=== PATIENT | male | born 1985 | race Caucasian/White ===

== ENCOUNTER 2020-08-27 15:13 | Inpatient (IN) | payer BC ==
[~2020-08-27 15:13] MED LIST: Iopamidol-370 76% 500 ML 1 ML ONE; Lorazepam 2 MG/ML VIAL ONE; Ondansetron PF 4 MG/2 ML Vial ONE
[2020-08-27] MEDS ORDERED: levETIRAcetam In NaCl (Iso-Os) 200 ML ONE (15:17)
[2020-08-27 15:37] LABS: #Basophils 0.2 thou/uL (0.0-0.2); #Eosinphils 0.5 thou/uL (0.0-0.7); #Lymphocytes 4.5 thou/uL (1.20-3.40); #Monocytes 0.7 thou/uL (0.11-0.59); #Neutrophils 10.3 thou/uL (1.40-6.50); %Eosinophils 2.9 % (0.0-10.0); %Monocytes 4.5 % (0.0-10.0); %Neutrophils 63.5 % (42.0-75.0); Hemoglobin 16.7 g/dL (14.0-18.0); Mean Corpuscular HGB CONC 33.9 g/dL (32.0-36.0); Mean Corpuscular Hemoglobin 31.3 pg (27.0-31.0); Mean Corpuscular Volume 92.5 fL (78.0-98.0); Mean Platelet Volume 8.8 fL (7.4-10.4); Platelet Count 448 thou/uL (130-400); RBC Distribution Width 11.4 % (11.5-14.5); Red Blood Cell (RBC) Count 5.32 mill/uL (4.70-6.10); White Blood Cell (WBC) Count 16.2 thou/uL (4.8-10.8)
[2020-08-27 15:55] LABS: Chloride 102 mmol/L (98-107); Potassium 4.4 mmol/L (3.5-5.1); Sodium 137 mmol/L (136-145)
[2020-08-27 15:56] LABS: Calcium 8.6 mg/dL (7.8-10.44); Glucose 211 mg/dL (70-105)
[2020-08-27 15:57] LABS: Globulin 3.8 g/dL (2.4-3.5); Protein, Total 8.6 g/dL (6.0-8.3)
[2020-08-27 15:58] LABS: Bilirubin, Total 0.3 mg/dL (0.2-1.2)
[2020-08-27 16:05] LABS: ALT (SGPT) 26 U/L (8-55); AST (SGOT) 25 U/L (5-34); Albumin 4.8 g/dL (3.5-5.0); Alkaline Phosphatase 124 U/L (40-110); Anion Gap 32 mmol/L (10-20); BUN (Urea Nitrogen) 10 mg/dL (8.9-20.6); Calc. Creatinine Clearance 0 mL/min (70-130); Carbon Dioxide 8 mmol/L (22-29); Estimated GFR-MDRD 65
--- NOTE | 2020-08-27 16:08 | CT ---
CT CERVICAL SPINE NONCONTRAST: DATE: 08/27/2020 HISTORY: cervical trauma: 34-year-old male status post fall due to seizure FINDINGS: There are no jumped or perched facets. There is no evidence of acute fracture. The vertebral body hei ghts are maintained. There is no prevertebral soft tissue swelling. There is a coronally oriented linear lucency across the anterior portion of distal aspect of the right T1 transverse process. It ap pears to have corticated margins, and therefore does not appear to be an acute fracture. IMPRESSION: No convincing evidence of acute fracture or acute traumatic subluxation.
[2020-08-27] MEDS ORDERED: Rocuronium Bromide 10 MG/ML (10ML VIAL) ONE ×2 (16:17→16:18)
[2020-08-27] MEDS ORDERED: Propofol 1,000 MG/100 ML VIAL IV ONE ×2 (16:35→19:30)
--- NOTE | 2020-08-27 16:43 | CT ---
BRAIN CT WITHOUT IV CONTRAST: Date: 08/27/2020 HISTORY: Altered mental status. Seizure. COMPARISON: 10/17/2018. FINDINGS: There is evidence for bilateral subarachnoid hemorrhage involving the cerebrum primarily. Mild sinus mucosal changes of the sphenoid and ethmoid sinuses. There is no focal mass or midline shift. No evid ence for extra-axial hemorrhage. IMPRESSION: 1. Fairly extensive bilateral subarachnoid hemorrhage. 2. Nasopharyngeal tube noted in place. Findings discussed with Dr. Hunt at 1555 hours. CODE CR. Follow-up CT angiogram brain suggested for further evaluation.
--- NOTE | 2020-08-27 17:03 | RAD ---
Portable frontal chest radiograph: 08/27/2020 COMPARISON: None HISTORY: Seizures, intubated patient FINDINGS: There is an endotracheal tube present, distal tip overlying the tracheal air column at the level of the clavicular head. There is mild increased linear interstitial density seen diffusely with no focal consolidation or alveolar edema. Supine nature of the exam limits assessment for pneumo thorax and pleural fluid. The tip of the nasogastric tube is suspected at the level of the thoracic inlet. IMPRESSION: Lines and tubes as above. Probable malposition nasogastric tube. Nonspecific linear inter stitial density as above. Results called to Dr. Hunt 5:00 PM on 08/27/2020
--- NOTE | 2020-08-27 17:40 | CT ---
CT angiogram head: 08/27/2020 COMPARISON: None HISTORY: Subarachnoid hemorrhage TECHNIQUE: Axial CT imaging at 1.25 mm intervals the head with IV contrast using CT angiogram protoco l. Coronal and sagittal 3-D reformatted imaging obtained. FINDINGS: The mastoid air cells are well-aerated. There is partial opacification involving bilateral frontal sinuses and ethmoid air cells. Mild mucosal thickening of the right sphenoid sinus and bilateral maxillary sinuses. There is fluid within the oropharynx and nasopharynx with fluid within bilateral nasal cavities. The distal vertebral arteries appear patent bilaterally. The basilar artery and its branches are chiu nt. No evidence for saccular aneurysm high-grade stenosis or vascular occlusion of the posterior circulation. The imaged portions of the extracranial ICA appear patent bilaterally. The cavernous segment of the internal carotid artery appears unremarkable bilaterally. The anterior c ommunicating artery and the distal MADI branches appear grossly unremarkable. The M1 segment appears patent. The MCA bifurcation and the ICA bifurcation appears grossly unremarkab le. Distal MADI and MCA branches appear patent. No saccular aneurysm is evident involving the anterior circulation. There is extensive diffuse subarachnoid hemorrhage, better assessed on recent n oncontrast enhanced head CT, which includes subarachnoid blood in bilateral sylvian fissures. No acute osseous abnormality. IMPRESSION: No CT angiographic evidence for saccular intracranial aneurysm. Short-term follow-up conv entional angiogram and/or repeat CT angiogram is advised to exclude the possibility of an aneurysm obscured by vasospasm or acute thrombosis.
[2020-08-27] MEDS ORDERED: Promethazine 25 MG TAB PO PRN (17:42)
[2020-08-27] MEDS ORDERED: Docusate 100 MG CAP PO PRN (17:42)
[2020-08-27] MEDS ORDERED: hydrALAZINE 20 MG/ML VIAL SLOW IVP PRN ×2 (17:42)
[2020-08-27] MEDS ORDERED: Promethazine HCl 25 MG/ML VIAL IM PRN (17:42)
[2020-08-27] MEDS ORDERED: Lorazepam 2 MG/ML VIAL ONE ×2 (17:42→23:28)
[2020-08-27] MEDS ORDERED: diphenhydrAMINE 50 MG CAP PO PRN (17:42)
[2020-08-27] MEDS ORDERED: Acetaminophen 325 MG TAB PO PRN (17:42)
[2020-08-27] MEDS ORDERED: Mag-Al 1200 mg/1200 mg/30 ML UDCUP PO PRN (17:42)
[2020-08-27] MEDS ORDERED: diphenhydrAMINE 50 MG/ML VIAL IVP PRN (17:42)
[2020-08-27 17:46] LABS: Actual Bicarbonate (HCO3a) 20.3 mEq/L (22-28); Analyzer IN Cardio ER; Base Excess (BEa) -4.8 mEq/L (-2.0 to +3.0); CO2 Tension 38.4 mmHg (35.0-45.0); Calcium, Ionized (arterial) 1.12 mmol/L (1.12-1.30); Carboxyhemoglobin (COHb) 1.2 gm% (0.0-3.0); Hemoglobin (Hb) 16.5 g/dL (14.0-18.0); Potassium - ABG Lab 3.92 mmol/L (3.70-5.30); pH, Arterial 7.34 (7.35-7.45)
[2020-08-27 17:48] LABS: Puncture Site RRA
[2020-08-27 17:50] LABS: Prothrombin Time 13.4 sec (12.0-14.7)
[2020-08-27 17:51] LABS: PTT 20.3 sec (22.9-36.1)
[2020-08-27] MEDS ORDERED: Fentanyl 100 MCG/2 ML VIAL ONE ×2 (17:53→17:57)
[2020-08-27] MEDS ORDERED: Fosphenytoin Sodium 1,500 MG in Sodium Chloride 0.9% 50 ML IVPB SCH (18:00)
[2020-08-27] MEDS ORDERED: fentaNYL Citrate/PF 2,000 MCG in Sodium Chloride 0.9% 60 ML IV SCH ×2 (18:00→18:30)
[2020-08-27] MEDS ORDERED: Ondansetron PF 4 MG/2 ML Vial IVP PRN (18:02)
[2020-08-27] MEDS ORDERED: Dextrose 5% in Water 1,000 ML IV PRN (18:02)
[2020-08-27] MEDS ORDERED: Dextrose 50% Abboject 50 ML SYRINGE SLOW IVP PRN (18:02)
[2020-08-27] MEDS ORDERED: Ventilator Sedation Protocol 1 EACH FS ONE (18:12)
[2020-08-27] MEDS: Sodium Chloride 0.9% 1,000 ML IV SCH (18:15)
--- NOTE | 2020-08-27 18:27 | RAD ---
FRONTAL RADIOGRAPH CHEST: 08/27/20 at 6:04 p.m. HISTORY: Evaluate lines and tubes. FINDINGS: Nasogastric tube extends into the epigastric region. Endotracheal tube present in proper position. No pneumothorax, lobar consolidation, or alveolar edema. IMPRESSION: Lines and tubes as detailed above. POS: CRISTAL
[2020-08-27] MEDS ORDERED: Propofol BOLUS 1,000 MG/100 ML VIAL IV PRN (18:30)
[2020-08-27] MEDS ORDERED: Fentanyl BOLUS 250 ML IVPB PRN (18:30)
[2020-08-27] MEDS ORDERED: Morphine 2 MG/ML VIAL SLOW IVP PRN (18:30)
[2020-08-27] MEDS ORDERED: Lorazepam 2 MG/ML VIAL SLOW IVP PRN (18:30)
[2020-08-27] MEDS ORDERED: DISCONTINUE PREVIOUS NARCOTIC PAIN MEDICATIONS AND BENZODIAZEPINES FS SCH (18:30)
[2020-08-27 18:42] LABS: Phosphorus 5.6 mg/dL (2.3-4.7)
[2020-08-27 19:01] LABS: Bilirubin Negative (Negative); Blood, Urine Trace (Negative); Glucose, Urine (Dipstick) Negative (Negative); Ketone, Urine Negative (Negative); Leukocyte Negative (Negative); Nitrite Negative (Negative); Protein, Urine (Dipstick) Negative (Neg-Trace); Specific Gravity, Urine 1.015 (1.005-1.030); Urobilinogen 0.2 mg/dL (Less than 2); pH, Urine 6.5 (5.0-9.0)
[2020-08-27 19:04] LABS: Clarity Clear (Clear)
[2020-08-27 19:06] LABS: Bacteria/HPF None Seen HPF (None Seen); RBC/HPF 0-3 HPF (0-3); Squamous Epithelial None Seen HPF (0-3); Transitional Epithelial None Seen HPF (None Seen); WBC/HPF None Seen HPF (0-3)
[2020-08-27 19:47] LABS: Anion Gap 20 mmol/L (10-20); BUN (Urea Nitrogen) 9 mg/dL (8.9-20.6); Calc. Creatinine Clearance 0 mL/min (70-130); Calcium 8.4 mg/dL (7.8-10.44); Carbon Dioxide 17 mmol/L (22-29); Chloride 105 mmol/L (98-107); Estimated GFR-MDRD Greater than 90; Glucose 92 mg/dL (70-105); Magnesium 2.6 mg/dL (1.6-2.6); Sodium 138 mmol/L (136-145)
[2020-08-27 19:50] LABS: Phosphorus 2.6 mg/dL (2.3-4.7)
[2020-08-27] MEDS ORDERED: Sodium Phosphate 15 MMOL in Sodium Chloride 0.9% 250 ML 250 ML IVPB ONE (20:00)
[2020-08-27 20:17] LABS: Amphetamine Not Detected (NotDetected); Barbiturates Screen Not Detected (NotDetected); Benzodiazepine Screen Not Detected (NotDetected); Cocaine Metabolite Screen Not Detected (NotDetected); Medtox Control Line Valid? VALID (VALID); Medtox Reader # READER 4; Methadone Not Detected (NotDetected); Methamphetamine Not Detected (NotDetected); Opiate Screen Not Detected (NotDetected); Oxycodone Screen Not Detected (NotDetected); Phencyclidine (PCP) Not Detected (NotDetected); THC/Cannabinoid Screen Detected (NotDetected); Tricyclic Screen Not Detected (NotDetected)
[2020-08-27] MEDS ORDERED: Famotidine/PF 20 mg/2ml Vial ONE (20:53)
[2020-08-27] MEDS: Famotidine/PF 20 mg/2ml Vial SLOW IVP SCH (21:00)
[2020-08-27] MEDS ORDERED: Midazolam HCl 2 mg/2 ml Vial ONE (21:33)
[2020-08-27] MEDS: Propofol 1,000 MG/100 ML VIAL IV PRN (23:32)
[2020-08-27 23:58] VITALS: BMI 24.3
--- NOTE | 2020-08-28 00:39 | CON ---
DATE OF CONSULTATION: 08/27/2020 HISTORY OF PRESENT ILLNESS: Mr. Juancarlos Staton is a 34-year-old gentleman with a history of seizures for the past 5 years, being managed by a neurology doctor in [facility]. 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 Witnesses state that the patient had a seizure for 10 minutes. EMS reports that the patient was having a tonic colonic seizure and was given IM Valium 8 minutes prior to the arrival to the ED. It is reported that the patient fell and does have a contusion over the left frontal and periorbital region of his face. Neurosurgery was consulted due to a CT of the head showing bilateral subarachnoid hemorrhage. Followup was recommended by Radiology for a CT angiogram, which was read as negative for saccular intracranial aneurysm. REVIEW OF SYSTEMS: Noncontributory. PAST MEDICAL HISTORY: From , seizure disorder, PTSD, depression. MEDICATIONS: 1. Alprazolam 0.5 mg. 2. Venlafaxine 150 mg. 3. Keppra 750 mg. 4. Venlafaxine 75 mg. 5. Lamotrigine 200 mg. ALLERGIES: NO KNOWN DRUG ALLERGIES. FAMILY HISTORY: Noncontributory. SOCIAL HISTORY: Noncontributory. PHYSICAL EXAMINATION: VITAL SIGNS: Blood pressure 132/74, pulse 100, temperature 97.6. HEENT: Pupils are equal. Eyelids normal. Conjunctiva normal. Contusion over the left frontal and preorbital region. NECK: C-spine collar. NEUROLOGIC: GCS eye opening 2, vocal 2, motor 5, total 9 prior to intubation. Unable to get a neurological exam due to sedation and intubation of the patient. IMAGIN. Head CT, bilateral subarachnoid hemorrhage. 2. CT of the C-spine, no acute fractures. 3. Head CTA, negative for aneurysm. LABORATORY DATA: Platelets 448. PT 13.4, INR 1.0, PTT 20.3. Sodium 137, Keppra level 54.6. ASSESSMENT: 1. Seizure disorder. 2. Bilateral subarachnoid hemorrhage. PLAN: Repeat CT of the brain in the morning. If scan shows improvement or no change, we will transfer care to the Trauma Service. Supportive care. No intracranial surgery at this time. We will have him follow up in 2 to 3 weeks in our clinic and repeat scan prior to that visit. Job ID: [id number]
[2020-08-28] MEDS ORDERED: Lorazepam 2 MG/ML VIAL SLOW IVP PRN (03:21)
[2020-08-28 03:36] LABS: INR-International Normal Ratio 1.1
[2020-08-28 03:37] LABS: PTT 31.4 sec (22.9-36.1)
[2020-08-28 03:41] LABS: #Basophils 0.1 thou/uL (0.0-0.2); #Eosinphils 0.2 thou/uL (0.0-0.7); #Lymphocytes 3.3 thou/uL (1.20-3.40); #Monocytes 1.4 thou/uL (0.11-0.59); #Neutrophils 10.2 thou/uL (1.40-6.50); %Basophils 0.6 % (0.0-1.0); %Eosinophils 1.5 % (0.0-10.0); %Lymphocytes 21.8 % (21.0-51.0); %Monocytes 9.2 % (0.0-10.0); %Neutrophils 66.9 % (42.0-75.0); Hemoglobin 13.9 g/dL (14.0-18.0); Mean Corpuscular HGB CONC 35.6 g/dL (32.0-36.0); Mean Corpuscular Hemoglobin 31.8 pg (27.0-31.0); Mean Corpuscular Volume 89.6 fL (78.0-98.0); Mean Platelet Volume 7.4 fL (7.4-10.4); Platelet Count 295 thou/uL (130-400); RBC Distribution Width 11.3 % (11.5-14.5); Red Blood Cell (RBC) Count 4.36 mill/uL (4.70-6.10); White Blood Cell (WBC) Count 15.2 thou/uL (4.8-10.8)
[2020-08-28] MEDS: Propofol 1,000 MG/100 ML VIAL IV PRN (03:53)
[2020-08-28 04:04] LABS: Anion Gap 14 mmol/L (10-20); BUN (Urea Nitrogen) 11 mg/dL (8.9-20.6); Calc. Creatinine Clearance 164 mL/min (70-130); Calcium 8.1 mg/dL (7.8-10.44); Carbon Dioxide 22 mmol/L (22-29); Chloride 107 mmol/L (98-107); Estimated GFR-MDRD Greater than 90; Glucose 84 mg/dL (70-105); Potassium 3.5 mmol/L (3.5-5.1); Sodium 139 mmol/L (136-145)
[2020-08-28 04:13] LABS: Magnesium 2.5 mg/dL (1.6-2.6); Phosphorus 3.2 mg/dL (2.3-4.7)
[2020-08-28] MEDS: Sodium Chloride 0.9% 1,000 ML IV SCH ×3 (04:50→23:58)
--- NOTE | 2020-08-28 05:12 | HP ---
ADDENDUM: This is an addendum to the H and P dictated by Tabitha Lima, trauma nurse practitioner. For full details, please see her H and P. The patient was examined in the emergency room. He was intubated and sedated at the time of my evaluation, so history was obtained from chart review and discussion with his nurse. The patient is a 34-year-old man who reportedly had a witnessed seizure lasting about 10 minutes, during which he fell and hit his head. When he arrived in the emergency room, he had a decreased level of consciousness and was felt to be postictal. A CT of the head revealed fairly extensive bilateral subarachnoid hemorrhage, however, and his EMV was less than 8, so the ER physician elected to intubate him for airway protection. He reportedly had another witnessed seizure shortly thereafter and received more benzodiazepines for this. He had also received benzodiazepines by EMS given IM at the time of his initial evaluation. When I saw him, he was on the sedation protocol and was not following commands, but according to his nurse, he will intermittently follow commands, but then will become agitated and they will have to turn his sedation backup. He has not had any recent witnessed seizure activity. PAST MEDICAL HISTORY: Seizure disorder, reportedly compliant with medications and last seizure 9 months ago and history of testicular cancer as a 11-year-old. MEDICATIONS: Outpatient medications include; 1. Alprazolam 0.5 mg p.o. b.i.d. 2. Venlafaxine 150 mg p.o. daily. 3. Levetiracetam 750 mg p.o. b.i.d. 4. Venlafaxine 75 mg p.o. daily. 5. Lamotrigine 200 mg p.o. q.a.m. and 300 mg p.o. q.p.m. PAST SURGICAL HISTORY: Right orchiectomy and lymph node dissection for testicular cancer. REVIEW OF SYSTEMS: Not obtainable. FAMILY HISTORY: Not documented. SOCIAL HISTORY: The patient is reportedly a principal. PHYSICAL EXAMINATION: VITAL SIGNS: Patient has been afebrile since admission. Blood pressure at the time of my evaluation was 104/69, heart rate 102, respirations 21 and 100% saturated on SIMV. NEUROLOGIC: The patient did not open eyes to voice or pain. Spontaneously he exhibited withdrawal to pain, but was not following commands or localizing and was intubated. HEENT: Shows left periorbital ecchymosis and abrasion and some swelling on his left forehead. Some minor abrasions on his lower lip and tip of tongue. Pupils were equal and reactive. NECK: Supple without lymphadenopathy. No palpable step-offs. HEART: Regular in rate and rhythm without murmurs, rubs, or gallops. LUNGS: Clear to auscultation bilaterally. ABDOMEN: Soft and nondistended. No palpable masses or hernias and healed midline incision and right inguinal incision. EXTREMITIES: Warm, well perfused without edema or deformity. Normal pedal and radial pulses. PSYCHIATRIC: Unable to evaluate. DIAGNOSTIC STUDIES: CT of the neck did not show any acute fractures. CT angio of the brain did not show any saccular aneurysms. CT of the brain showed bilateral subarachnoid hemorrhages. LABORATORY DATA: White count was mildly elevated at 16, platelets 448, hematocrit 49. Coags are normal. Electrolytes unremarkable, except for a low bicarb of 8, prolactin 12. ABGs after intubation showed a pH of 7.34, pCO2 of 38, and PO2 of 94 on 40% FiO2. ASSESSMENT: Subarachnoid hemorrhage, presumed traumatic following fall during witnessed seizure. Spontaneous hemorrhage cannot be completely excluded. No evidence of aneurysm on CT angio of the brain. Neurosurgery has been consulted and is following the patient. He is intubated for airway protection and will be admitted to the ICU with serial neuro checks. Vent sedation protocol in place to prevent the patient's self-harm from reaching for tubes and lines and also to keep blood pressure in normal range. No recent witnessed seizure activity, but monitoring closely for this. Job ID: [id number]
--- NOTE | 2020-08-28 05:25 | PRG ---
DATE OF SERVICE: 08/27/2020 SUBJECTIVE: The patient was seen this evening while rounding in the emergency department. He was intubated and sedated. Sedation vacation was completed and the patient had a GCS of 10 to 11T. He appeared to understand what we were asking of him and his situation. His pain was well controlled. OBJECTIVE: VITAL SIGNS: Temperature 97.9, pulse 93, respirations 18, oxygen saturation 99% on the ventilator, and blood pressure 109/64. GENERAL: Well-appearing young male, lying in bed with no signs of acute distress. PULMONARY: Equal chest rise and fall. Clear breath sounds bilaterally. No signs of acute respiratory distress. CARDIAC: Regular rate and rhythm. GI: Abdomen is soft, nontender, nondistended. EXTREMITIES: 2+ pulses in all extremities. Gross motor and sensation intact. No significant swelling noted. FACE: The patient does have left-sided face and cheek bruising. NEUROLOGIC: GCS is eyes 3 to 4, verbal 1T, and motor 6 for a total of 10 to 11T. LABORATORY FINDINGS: Sodium 138, potassium 4.0, chloride 105, bicarb 17, BUN 9, creatinine 0.87, glucose 92, phosphorus 2.6, magnesium 2.6. DIAGNOSTIC FINDINGS: There are no new diagnostic findings to report. ASSESSMENT: 1. Status post fall due to seizures. 2. Bilateral frontal subarachnoid hemorrhages. 3. History of seizures and testicular cancer. PLAN: Continue current n.p.o. status. Normal saline 120 an hour. Continue fentanyl and propofol drips. Repeat head CT in the morning, q.1 hour neuro checks. Repeat blood work in the morning. Replace sodium and phos. This patient was discussed with Dr. Reardon before this dictation. Job ID: [id number]
--- NOTE | 2020-08-28 05:50 | HP ---
REQUESTING PHYSICIAN: Dr. Hunt. CONSULTS: Neurosurgery, Dr. Barry. CHIEF COMPLAINT: Seizure, fall from standing, altered mental status. HISTORY OF PRESENT ILLNESS: This is a 34-year-old gentleman who has previous history of seizures for the last two years, currently takes Keppra in which his last seizure was approximately 6 months ago. The patient is a high school coordinator. He was at school this afternoon when he had seizure activity lasting approximately 10 minutes, fell hitting his head. EMS arrived and the patient continued to have seizures and was given 5 mg of Versed. When the patient arrived to the emergency room, he was postictal. EMS reports the patient was hypoxic with SpO2 in the 80s on room air, in which a nasal airway was placed. The patient was also placed on a non- rebreather with oxygen saturations in the 90s. The patient's GCS was reported by the ER physician to be E1, V1, M5. The patient was taken to the CT scanner, which revealed bilateral subarachnoid hemorrhages. The patient was taken back to the ER room and rapid sequence intubation was completed. Medications given included fosphenytoin 1500 mg, lorazepam 2 mg IV, multiple doses of propofol after intubation, rocuronium 100 mg for induction, etomidate 30 mg IV, lorazepam 2 mg IV, 1 L of normal saline, Zofran 4 mg, and Keppra 2 g. The patient was evaluated by Neurosurgery in the emergency room and Trauma Services was asked to admit the patient. REVIEW OF SYSTEMS: Unable to obtain due to the patient being intubated. Other subjective information was gathered by the patient's and/or ER chart. ALLERGIES: NO KNOWN DRUG ALLERGIES. MEDICATIONS: 1. Alprazolam 0.5 mg p.o. b.i.d. p.r.n. 2. Venlafaxine 150 mg once a day. 3. Keppra 750 mg p.o. b.i.d. 4. Venlafaxine 75 mg once a day. 5. Lamotrigine 200 mg one tablet in the morning and 1.5 tablets in the evening. PAST MEDICAL HISTORY: Seizures, testicular cancer at age 11 treated with chemotherapy. 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 PHYSICAL EXAMINATION: VITAL SIGNS: Pulse 100, blood pressure 105/67, respirations 18, and SpO2 of 100% on 40% FiO2. GENERAL: Well-appearing middle aged male, sedated on full mechanical ventilatory support. HEENT: Normocephalic, contusion, abrasion, left forehead and periorbital region. Pupils 2 mm and sluggish. Trachea midline. C-spine cleared by ER physician. Tympanic membranes unremarkable. RESPIRATORY: Equal chest rise and fall. Bilateral breath sounds clear. No wheezing, rales, or rhonchi. CARDIOVASCULAR: Regular rate and regular rhythm. No murmurs. No pedal edema. EXTREMITIES: No obvious deformities. Distal pulses intact. ABDOMEN: Soft, nondistended. Active bowel sounds. SKIN: Jerome, warm, dry. No lesions. NEUROLOGIC: Sedated. Moves all extremities. E1, V1, M5. LABORATORY DATA: WBC 16.2, RBC 5.32, hemoglobin 16.7, hematocrit 49.2, platelets 448. PT 13.4, INR 1.0, aPTT 20.3. ABG; bicarb 20.3, pH 7.34, pCO2 of 38.4, pO2 of 94, base excess -4.8, ionized calcium 1.12. Sodium 137, potassium 4.4, chloride 102, carbon dioxide 8, anion gap 32, BUN 10, creatinine 1.26, estimated GFR 65, glucose 211, phosphorus 5.6, magnesium 2.9. AST 25, ALT 26, alkaline phos 124, albumin 4.8, and prolactin 12.0. Urinalysis, negative for UTI. DIAGNOSTIC DATA: 1. Brain CT, impression, fairly extensive bilateral subarachnoid hemorrhage, mainly involving the cerebrum. There is no focal mass or midline shift. There is no evidence of extra-axial hemorrhage. 2. Cervical spine CT, impression, no convincing evidence of acute fracture or acute traumatic subluxation. 3. [place] angio with contrast, no CT angiographic evidence for saccular intracranial aneurysm. Short-term followup conventional angiogram and/or repeat CT angiogram is advised to exclude the possibility of an aneurysm obscured by vasospasm or acute thrombosis. 4. Chest x-ray, impression, mild increased linear interstitial density seen diffusely with no focal consolidation of alveolar edema. ASSESSMENT: 1. Status post seizure activity. 2. Ground level fall. 3. Bilateral subarachnoid hemorrhages. 4. Left scalp contusion and abrasion. 5. History of seizures, on Keppra and compliant. PLAN: Admit to the critical care unit. Full ventilatory support with sedation and pain regimen. Head of bed elevated at 30 degrees at all times. End-tidal CO2 with a goal of 35 to 40. Maintenance IV fluids, normal saline at 120 an hour. Monitor urinary output. Repeat labs in an ABG. Neurosurgery plans to repeat a head CT in the morning. We will monitor blood glucose levels. The plan was discussed with Dr. Rush and Dr. Reardon who agrees. Job ID: [id number] [facility]ENTERAndreas
--- NOTE | 2020-08-28 06:53 | PRG ---
DATE OF SERVICE: I personally examined the patient, reviewed records and imaging and agreed with documentation of Shakir Gudino PA-C, dated 08/27/2020. 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 He has a known seizure disorder, for which he takes Keppra. He was intubated in our emergency department and CT examination of brain showed some traumatic appearing subarachnoid hemorrhage, although some of that extended into the sylvian fissures bilaterally. This was in the distal sylvian fissure rather than in the basal cistern area. A CT angiogram was performed, which was negative. He has been admitted overnight in the ICU on the ventilator. When sedation is weaned, he follows commands easily. Overnight, I do not see any fevers recorded. Blood pressures have been in the low 100s. He is currently on propofol to tolerate the ventilator, but even through the propofol, he can move all extremities. When the propofol is weaned, he can follow commands. The sodium is 139 this morning[address] I reviewed CT angiography and there was no aneurysm visible. I reviewed a followup CT scan of the head and the subarachnoid blood is decreasing in its volume. The plan today for Mr. Juancarlos Staton is to wean him off the ventilator. Extubate him when he is stable to move from the ICU to floor care. If he is safe for all his activities of daily living, he can be discharged as early as this afternoon. He should follow up with his neurologist and adjustments can be made to his Keppra based on his serum Keppra level when he was admitted. Job ID: [id number] [facility]
[2020-08-28 07:24] LABS: Actual Bicarbonate (HCO3a) 23.3 mEq/L (22-28); Base Excess (BEa) -0.9 mEq/L (-2.0 to +3.0); CO2 Tension 37.2 mmHg (35.0-45.0); Calcium, Ionized (arterial) 1.17 mmol/L (1.12-1.30); Carboxyhemoglobin (COHb) 0.6 gm% (0.0-3.0); Hemoglobin (Hb) 13.7 g/dL (14.0-18.0); O2 Tension (PaO2), arterial 144.3 mmHg (80.0-100.0); Potassium - ABG Lab 3.37 mmol/L (3.70-5.30); pH, Arterial 7.41 (7.35-7.45)
[2020-08-28 07:26] LABS: Puncture Site RB
--- NOTE | 2020-08-28 08:02 | RAD ---
Chest AP view INDICATION: History of intubation COMPARISON: August 27, 2020 FINDINGS: Lungs: Bibasilar atelectasis persists, left greater than right. Cardiac silhouette: Heart size is normal. Pulmonary vasculature: Normal Pleural spaces: No pleural effusion or pneumothorax is demonstrated. Upper abdomen: No abnormality seen. Osseous structures: No acute osseous abnormality. Additional findings: ET tube and gastric catheter unchanged. IMPRESSION: Bibasilar atelectasis is stable. Stable tubes and lines. No pneumothorax.
--- NOTE | 2020-08-28 08:13 | CT ---
PRELIMINARY REPORT/[facility]/EMERGENCY AFTER HOURS PROCEDURE EXAM: CT Head Without Intravenous Contrast. CLINICAL HISTORY: REPEAT for Subarachnoid Hemorrhage TECHNIQUE: Axial computed tomography images of the head/brain without intravenous contrast. COMPARISON: NONE PROVIDED. FINDINGS: BRAIN: No acute intraparenchymal hemorrhage. No mass lesion. No CT evidence for acute territorial infarct. Moderate amount of subarachnoid blood noted bilaterally within the sylvian fissure complexes and in the anterior interhemispheric fissure. VENTRICLES: No hydrocephalus. ORBITS: The orbits are unremarkable. SINUSES AND MASTOIDS: Fairly extensive but chronic paranasal sinus disease. Mastoids are clear. SOFT TISSUES: No significant facial or scalp soft tissue swelling evident. No radiopaque foreign body is seen. BONES: No acute skull fracture. IMPRESSION: Moderate subarachnoid hemorrhage bilaterally. No definite, acute intraparenchymal abnormalities. Th is apparently is known but a comparison study is not available for comparison. ELECTRONICALLY SIGNED BY: Shakir Choudhary MD Aug 28, 2020 4:21:57 AM APPLIANCE ADJUSTER This report is intended for review by the ordering physician only, in accordance of law. If you recei ve this report in error, please call [facility] at [phone]. FINAL REPORT EMERGENCY AFTER HOURS CT HEAD: The distributed subarachnoid hemorrhage seen within the lateral aspects of the suprasellar cistern ex tending into the sylvian fissures bilaterally and along the parafalcine region is largely stable. There is slightly increased layered hemorrhage within the interpeduncular cistern. No hydrocephalus o r midline shift is evident. No acute infarct is noted. Mucosal disease of the ethmoid air cells is stable. IMPRESSION: Likely stable distributed subarachnoid hemorrhage without evidence of hydrocephalus or acute infarct. Transcribed Date/Time: 08/28/2020 9:00 AM
[2020-08-28] MEDS ORDERED: levETIRAcetam In NaCl (Iso-Os) 750 MG in Premix Bag 1 BAG IVPB SCH (09:00)
[2020-08-28] MEDS ORDERED: Chloraseptic Spray 180 ml Bottle PO PRN (09:55)
[2020-08-28] MEDS: Famotidine/PF 20 mg/2ml Vial SLOW IVP SCH (11:23)
--- NOTE | 2020-08-28 16:50 | PRG ---
DATE OF SERVICE: 08/28/2020 SUBJECTIVE: Mr. Juancarlos Staton is a 34-year-old man with history of epileptic seizure disorder. The patient fell from a ground-level position yesterday, striking his head during a 10-minute seizure activity. He was intubated at the scene and transferred to [facility] in [place], [place]. Workup included a CT scan of the brain, which revealed bilateral subarachnoid hemorrhages. A followup CT scan this morning reveals nearly resolved subarachnoid hemorrhages. Meanwhile, the patient is on mechanical ventilator support. He awakens to voice, moves all extremities, and follows commands. OBJECTIVE: VITAL SIGNS: This morning during my visit include blood pressure of 109/68, pulse 106, respiratory rate 17, maximum temperature in the last 24 hours is 98.5 degrees Fahrenheit, oxygen saturation 100% on FiO2 of 30% on mechanical ventilator support. HEENT: Pupils equally round and reactive to light bilaterally. HEART: Regular rate with mild sinus tachycardia. No murmurs or gallops auscultated. LUNGS: Clear to auscultation bilaterally. Breathing, regular and nonlabored. ABDOMEN: Soft, nontender, and nondistended. MUSCULOSKELETAL: 5/5 muscle strength in bilateral upper and lower extremities. LABORATORY FINDINGS: Today include a CBC with 15,200 white blood cells, hemoglobin and hematocrit 13.9 and 39.1 respectively, and platelet count is 295,000. Metabolic profile: Sodium 139, potassium 3.5, chloride is 107, bicarb is 22, BUN 11, creatinine 0.76, and glucose 84. Magnesium 2.5. Phosphorus is 3.2. Keppra levels yesterday were 41.0. IMPRESSIONS: 1. Status post ground-level fall during apparent recurrent epileptic seizure activity, postinjury day #1. 2. Resolving acute traumatic brain injury. 3. Resolving acute posttraumatic respiratory failure. PLAN: 1. The patient was weaned and successfully extubated. 2. Increase activity per Physical and Occupational Therapy. 3. Anticipate discharge within the next 24 hours to follow up with Neurology. 4. The patient was certainly in need of adjustment on his Keppra level. TOTAL CRITICAL CARE TIME: 35 minutes. Job ID: [id number]
[2020-08-28 17:39] LABS: SARS-CoV-2 MS2 Positive; SARS-CoV-2 N Gene Negative; SARS-CoV-2 S Gene Negative; SARS-CoV-2 by NAA Not Detected (NotDetected); SARS-CoV-2 orf1ab Negative
[2020-08-28] MEDS: Acetaminophen 500 MG TAB PO PRN (18:33)
[2020-08-28] MEDS ORDERED: levETIRAcetam 500 MG TAB PO SCH (21:00)
[2020-08-28] MEDS ORDERED: lamoTRIgine 100 MG TAB PO SCH (21:30)
--- NOTE | 2020-08-29 02:49 | PRG ---
DATE OF SERVICE: 08/28/2020 SUBJECTIVE: Patient was seen this evening during rounds. He was sitting up in bed, resting comfortably and asleep with no signs of acute distress. Nursing reported patient had a mild headache earlier that has now resolved with Tylenol. He has been drinking water, but reports he does not have much of an appetite. We will allow the patient to try again eating tomorrow morning. Otherwise, the patient's GCS remained 14 to 15. No signs of any seizure-like activity. OBJECTIVE: VITAL SIGNS: Temperature 98.5, pulse 96, respirations 16, oxygen saturation 98% on room air, and blood pressure 115/66. GENERAL: Well-appearing young male, sitting up in bed, asleep, with no signs of acute distress. PULMONARY: Equal chest rise and fall. No signs of acute respiratory distress. ASSESSMENT: 1. Status post seizure with fall. 2. Bilateral subarachnoid cerebral hemorrhages, stable. 3. History of seizures and testicular cancer. PLAN: Continue current regular diet. Restart patient's home p.o. Lamictal and Keppra. Patient is also to start his Effexor tomorrow. Since the patient is not taking adequate p.o., we will restart him on normal saline at 120 an hour. Patient to work with Physical, Occupational, and Speech Language pathology tomorrow. Continue to monitor GCS. Job ID: [id number]
[2020-08-29] MEDS: Acetaminophen 500 MG TAB PO PRN (03:34)
[2020-08-29 03:44] LABS: #Basophils 0.1 thou/uL (0.0-0.2); #Eosinphils 0.1 thou/uL (0.0-0.7); #Lymphocytes 2.4 thou/uL (1.20-3.40); %Basophils 0.5 % (0.0-1.0); %Lymphocytes 16.4 % (21.0-51.0); %Monocytes 6.6 % (0.0-10.0); %Neutrophils 75.5 % (42.0-75.0); Hemoglobin 13.8 g/dL (14.0-18.0); Mean Corpuscular HGB CONC 33.6 g/dL (32.0-36.0); Mean Corpuscular Hemoglobin 30.2 pg (27.0-31.0); Mean Corpuscular Volume 89.8 fL (78.0-98.0); Mean Platelet Volume 7.3 fL (7.4-10.4); Platelet Count 282 thou/uL (130-400); RBC Distribution Width 11.2 % (11.5-14.5); Red Blood Cell (RBC) Count 4.56 mill/uL (4.70-6.10); White Blood Cell (WBC) Count 14.5 thou/uL (4.8-10.8)
[2020-08-29 04:02] LABS: Anion Gap 15 mmol/L (10-20); BUN (Urea Nitrogen) 7 mg/dL (8.9-20.6); Calc. Creatinine Clearance 183 mL/min (70-130); Calcium 8.7 mg/dL (7.8-10.44); Carbon Dioxide 24 mmol/L (22-29); Chloride 106 mmol/L (98-107); Estimated GFR-MDRD Greater than 90; Glucose 71 mg/dL (70-105); Magnesium 1.9 mg/dL (1.6-2.6); Phosphorus 2.6 mg/dL (2.3-4.7); Potassium 3.6 mmol/L (3.5-5.1); Sodium 141 mmol/L (136-145)
[2020-08-29 04:12] VITALS: TEMP 98.3
[2020-08-29] MEDS: Sodium Chloride 0.9% 1,000 ML IV SCH (06:06)
--- NOTE | 2020-08-29 08:53 | PRG ---
DATE OF SERVICE: 08/29/2020 SUBJECTIVE: I visited the patient at the bedside in the ICU this morning. He has no complaints at this time and is feeling back to his baseline. He has had no additional seizure event. OBJECTIVE: HEENT: Pupils are equal and reactive. Extraocular movements intact. NEUROLOGIC: He has free active range of motion of all extremities. No focal motor weakness or focal neurologic deficits are appreciated. ASSESSMENT AND PLAN: The patient is doing quite well from neurosurgical perspective and we feel he could be discharged back to home. We will defer Keppra dosing to Neurology. Job ID: [id number]
[2020-08-29] MEDS ORDERED: Venlafaxine HCl XR 150 MG CAP PO SCH (09:00)
[2020-08-29] MEDS ORDERED: levETIRAcetam 500 mg/5 ml Oral Solution PO SCH (09:00)
[2020-08-29] MEDS ORDERED: lamoTRIgine 100 MG TAB PO SCH ×2 (09:00→21:00)
[2020-08-29] MEDS ORDERED: Non-Formulary Item 1 EACH (Lamotrigine [Lamictal] 200 MG Tablet) PO SCH (09:00)
[2020-08-29 11:14] VITALS: BP 144/94
--- NOTE | 2020-08-29 13:16 | EKG ---
Test Reason : Blood Pressure : / mmHG Vent. Rate : 132 BPM Atrial Rate : 133 BPM P-R Int : 134 ms QRS Dur : 086 ms QT Int : 316 ms P-R-T Axes : 067 063 028 degrees QTc Int : 468 ms Sinus tachycardia Otherwise normal ECG Confirmed by DANDRE POLK DO ([id number]), editor & co founder VI GRANADOS ([id number] on 08/29/2020 1:15:32 PM Referred By: Confirmed By:DANDRE POLK DO
--- NOTE | 2020-08-29 15:12 | DIS ---
DATE OF ADMISSION: 08/27/2020 DATE OF DISCHARGE: 08/29/2020 DISCHARGE ATTENDING: Dr. Rush. CONSULT: Neurosurgery, Dr. Barry. PROCEDURES: None. PRIMARY DIAGNOSES: Status post seizure activity, ground level fall, bilateral subarachnoid hemorrhages, left scalp contusion and abrasion, and respiratory failure. SECONDARY DIAGNOSIS: History of seizures, on Keppra. DISCHARGE MEDICATIONS: 1. Keppra increased per Neurology 1000 mg b.i.d. 2. Xanax 0.5 mg p.o. b.i.d. p.r.n. anxiety. 3. Acetaminophen 1000 mg p.o. q.6 hours p.r.n. pain. 4. Effexor 150 mg p.o. b.i.d. No discontinued medications. HISTORY OF PRESENT ILLNESS AND HOSPITAL COURSE: This is a 34-year-old gentleman with a past medical history of seizures for the last two years. Compliant according to his with Keppra. The patient's last seizure was approximately 6 months ago. 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 EMS had given the patient 5 mg of Versed as he was actively seizing. The patient arrived to the ER hypoxic and postictal. The patient's GCS was E1, V1, M5. The patient was taken to the CT scan and was found to have bilateral subarachnoid hemorrhages. The patient was taken back to the ER for intubation. The patient was given Keppra IV and multiple doses of sedation after being intubated. Neurosurgery was consulted. A repeat head CT the next morning was obtained and was stable according to Neurosurgery. The patient was extubated the next day without any difficulties and was alert and oriented with GCS of 15. The patient was able to work with Physical Therapy. The patient tolerated a regular diet. I did speak with the patient's neurology group, [facility] in [place], Dr. Lynne, who recommended increasing the patient's Keppra to 1000 mg b.i.d. as his Keppra level was 54. The patient was last seen by Beata Escobedo NP, at [facility]. The patient was instructed to follow up as soon as possible with Neurology. Speech Therapy did see the patient after he was extubated showing no swallowing difficulties and some mild attention deficits. On the day of discharge, the patient was evaluated by Dr. Rush. His vital signs were stable, and his exam was unremarkable including cardiopulmonary and GI exam. The patient was stable for discharge home with his . DISPOSITION: Stable. DISCHARGE INSTRUCTIONS: 1. Location: Home. 2. Diet: Regular diet as tolerated. 3. Activity: As tolerated. 4. Followup: Follow up with [facility] in [place] as soon as possible. Please call for an appointment. No need to follow up with Trauma Services. Please call for any questions. Job ID: [id number] [facility]
[2020-08-29] MEDS ORDERED: levETIRAcetam 500 MG TAB PO SCH (21:00)
== END 2020-08-29 11:43 | disposition home or self-care (01) | DRG 100 ==
LOC: ERS 15:13 → ERHOLD 18:02 → CCU 23:17 → 2SE 08-29 09:08
PROVIDERS: ADMIT Surgery; ATTEND Surgery
PROC: 5A1935Z Respiratory Ventilation, Less than 24 Consecutive Hours (ICD-10-PCS; principal; 2020-08-27)
PROC: 0BH17EZ Insertion of Endotracheal Airway into Trachea, Via Natural or Artificial Opening (ICD-10-PCS; 2020-08-27)
DX: G40.409 Other generalized epilepsy and epileptic syndromes, not intractable, without status epilepticus (principal); R40.2112 Coma scale, eyes open, never, at arrival to emergency department; S06.6X9A Traumatic subarachnoid hemorrhage with loss of consciousness of unspecified duration, initial encounter; R40.2212 Coma scale, best verbal response, none, at arrival to emergency department; J96.00 Acute respiratory failure, unspecified whether with hypoxia or hypercapnia; Z20.828 Contact with and (suspected) exposure to other viral communicable diseases; S00.03XA Contusion of scalp, initial encounter; S00.01XA Abrasion of scalp, initial encounter; R40.2352 Coma scale, best motor response, localizes pain, at arrival to emergency department; F43.10 Post-traumatic stress disorder, unspecified; F32.9 Major depressive disorder, single episode, unspecified; W18.30XA Fall on same level, unspecified, initial encounter; Z85.47 Personal history of malignant neoplasm of testis; Z79.899 Other long term (current) drug therapy; Z78.1 Physical restraint status; Z90.79 Acquired absence of other genital organ(s); Z92.21 Personal history of antineoplastic chemotherapy
CPT/HCPCS: 36415; 36416; 70450; 70496; 71045; 72125; 80048; 80053; 80175; 80177; 80306; 80307; 81003; 82805; 83735; 84100; 84146; 85025; 85610; 85730; 87635; 93005; 94003; G0390; J1953; J2060; J2250; J2270; J2405; J2704; J3010; J3490; J7050; Q2009; Q9967; S0028; U0003

== ENCOUNTER 2020-09-12 10:04 | Emergency (ER) | payer BC ==
[2020-09-12 10:50] LABS: #Eosinphils 0.3 thou/uL (0.0-0.7); #Lymphocytes 2.2 thou/uL (1.20-3.40); #Monocytes 0.8 thou/uL (0.11-0.59); %Basophils 0.5 % (0.0-1.0); %Lymphocytes 23.8 % (21.0-51.0); %Monocytes 8.4 % (0.0-10.0); %Neutrophils 64.4 % (42.0-75.0); Hemoglobin 15.1 g/dL (14.0-18.0); Mean Corpuscular HGB CONC 33.9 g/dL (32.0-36.0); Mean Corpuscular Hemoglobin 30.7 pg (27.0-31.0); Mean Corpuscular Volume 90.4 fL (78.0-98.0); Platelet Count 371 thou/uL (130-400); RBC Distribution Width 11.4 % (11.5-14.5); Red Blood Cell (RBC) Count 4.92 mill/uL (4.70-6.10); White Blood Cell (WBC) Count 9.3 thou/uL (4.8-10.8)
[2020-09-12 11:01] LABS: ALT (SGPT) 30 U/L (8-55); AST (SGOT) 16 U/L (5-34); Albumin 4.4 g/dL (3.5-5.0); Alkaline Phosphatase 109 U/L (40-110); Anion Gap 12 mmol/L (10-20); BUN (Urea Nitrogen) 7 mg/dL (8.9-20.6); Bilirubin, Total 0.3 mg/dL (0.2-1.2); Calc. Creatinine Clearance 0 mL/min (70-130); Calcium 9.2 mg/dL (7.8-10.44); Carbon Dioxide 30 mmol/L (22-29); Chloride 101 mmol/L (98-107); Estimated GFR-MDRD Greater than 90; Globulin 3.1 g/dL (2.4-3.5); Glucose 94 mg/dL (70-105); Potassium 3.9 mmol/L (3.5-5.1); Protein, Total 7.5 g/dL (6.0-8.3); Sodium 139 mmol/L (136-145)
== END 2020-09-12 11:56 | disposition home or self-care (01) ==
LOC: ERS 10:04
DX: R56.9 Unspecified convulsions (principal); R89.2 Abnormal level of other drugs, medicaments and biological substances in specimens from other organs, systems and tissues; Z79.899 Other long term (current) drug therapy
CPT/HCPCS: 36415; 80053; 80175; 80177; 85025; 99284